=== PATIENT | male | born 1990 | race Caucasian/White ===

== ENCOUNTER 2019-04-08 21:32 | Emergency (ER) | payer SELFPAY ==
--- NOTE | 2019-04-08 21:37 | PDOC ---
Rapid Medical Evaluation Chief Complaint: Back Pain Time Seen by Provider: 04/08/19 21:35 Medical Evaluation: Allergies Allergy/AdvReac Type Severity Reaction Status Date / Time No Known Allergies Allergy Verified 04/08/19 21:35 04/08/19 21:36 I have performed a brief in-person evaluation of this patient. The patient presents with a chief complaint of:Lower back pain s/p heavy lifting today at work Pertinent physical exam findings:christo uncomfortable I have ordered the following:nothing The patient will proceed to the ED for further evaluation. Discharge Disposition - Diagnosis Low back pain Qualifiers: Chronicity: acute Back pain laterality: unspecified Sciatica presence: without sciatica Qualified Code(s): M54.5 - Low back pain - Referrals - Patient Instructions - Post Discharge Activity
[2019-04-08 21:38] VITALS: BP 106/65; PULSE 71; TEMP 98.5; BMI 32.1
[2019-04-08] MEDS ORDERED: KETOROLAC TROMETHAMINE 60 MG/2 ML VIAL IM ONE (21:55)
[2019-04-08] MEDS ORDERED: KETOROLAC TROMETHAMINE 60 MG/2 ML VIAL ONE (22:01)
--- NOTE | 2019-04-08 22:02 | PDOC ---
History of Present Illness - General Chief Complaint: Back Pain Stated Complaint: BACK PAIN Time Seen by Provider: 04/08/19 21:35 - History of Present Illness Initial Comments: 04/08/19 22:02 29-year-old male without comorbidities presents for evaluation of lower back pain with posterior lateral left leg radicular symptoms without loss of bowel or bladder function systemic symptoms times one day. Past History - Past Medical History Allergies/Adverse Reactions: Allergies Allergy/AdvReac Type Severity Reaction Status Date / Time No Known Allergies Allergy Verified 04/08/19 21:35 Home Medications: Ambulatory Orders Cyclobenzaprine HCl [Flexeril 10 mg] 10 mg PO HS PRN #10 tablet 04/08/19 Methylprednisolone [Medrol Dose Booker] 4 mg PO ASDIR #21 tablet 04/08/19 COPD: No - Surgical History Appendectomy: Yes - Suicide/Smoking/Psychosocial Hx Smoking History: Never smoked Review of Systems - Review of Systems Musculoskeletal: Yes: Back Pain *Physical Exam - Vital Signs Last Vital Signs Temp Pulse Resp BP Pulse Ox 98.5 F 71 18 106/65 97 04/08/19 21:36 04/08/19 21:36 04/08/19 21:36 04/08/19 21:36 04/08/19 21:36 - Physical Exam Comments: 04/08/19 22:01 Lumbar spine skin color and temperature are normal. There is decreased range of motion. 5 out of 5 strength in bilateral lower extremities.Straight leg raise test is positive bilaterally. Thighs and calves are soft and nontender. There are no gross sensory motor deficits. Neurovascularly intact. R sided para lumbar musculature spasm and tenderness Medical Decision Making - Medical Decision Making 04/08/19 21:59 lumbar radiculopathy without gross sensorimotor deficits *DC/Admit/Observation/Transfer Diagnosis at time of Disposition: Lumbar radiculopathy Low back pain Qualifiers: Chronicity: acute Back pain laterality: unspecified Sciatica presence: without sciatica Qualified Code(s): M54.5 - Low back pain - Discharge Dispostion Disposition: HOME Condition at time of disposition: Stable Decision to Admit order: No - Prescriptions Prescriptions: Cyclobenzaprine HCl [Flexeril 10 mg] 10 mg PO HS PRN #10 tablet PRN Reason: Muscle Spasms Methylprednisolone [Medrol Dose Booker] 4 mg PO ASDIR #21 tablet - Referrals Referrals: ON STAFF,NOT [Primary Care Provider] - Urbano Cole MD, [facility] [Staff Physician] - - Patient Instructions Printed Discharge Instructions: Lumbar Radiculopathy, DI for Lumbar Radiculopathy Additional Instructions: Please start steroid pack in the morning. Take the medication as directed. The muscle relaxers one tablet before bedtime and will make you sleepy. He may take Tylenol as directed in addition to the steroid pack. Avoid anti-inflammatory such as Advil Motrin Aleve and ibuprofen. You're given an injection of a long- acting anti-inflammatory in the emergency room do not take any anti- inflammatories. Return to the emergency room should symptoms worsen or go unresolved and follow- up with neuro or spine surgery without fail in 1-2 days for further evaluation and treatment options. Follow-up with spine surgery without fail in 1-2 days for further evaluation and treatment options. - Post Discharge Activity
== END 2019-04-08 22:07 | disposition home or self-care (01) ==
LOC: JERFT 21:32
PROC: 3E0233Z Introduction of Anti-inflammatory into Muscle, Percutaneous Approach (ICD-10-PCS; principal; 2019-04-08)
DX: M54.16 Radiculopathy, lumbar region (principal); X50.9XXA Other and unspecified overexertion or strenuous movements or postures, initial encounter; Y93.H3 Activity, building and construction; Y92.69 Other specified industrial and construction area as the place of occurrence of the external cause; Y99.0 Civilian activity done for income or pay
CPT/HCPCS: 99282-25

== ENCOUNTER 2019-04-10 15:02 | Emergency (ER) | payer SELFPAY ==
--- NOTE | 2019-04-10 15:11 | PDOC ---
Rapid Medical Evaluation Chief Complaint: Back Pain Time Seen by Provider: 04/10/19 15:06 Medical Evaluation: Allergies Allergy/AdvReac Type Severity Reaction Status Date / Time No Known Allergies Allergy Verified 04/10/19 15:06 04/10/19 15:09 I have performed a brief in-person evaluation of this patient. The patient presents with a chief complaint of:LBP, on medrol dose pack and flexeril w/ no relief Pertinent physical exam findings:stable I have ordered the following:nothing The patient will proceed to the ED for further evaluation. Discharge Disposition - Diagnosis Low back pain Qualifiers: Chronicity: unspecified Back pain laterality: unspecified Sciatica presence: without sciatica Qualified Code(s): M54.5 - Low back pain - Referrals - Patient Instructions - Post Discharge Activity
[2019-04-10 15:12] VITALS: BP 114/84; PULSE 74; TEMP 98.2; BMI 32.1
--- NOTE | 2019-04-10 15:53 | PDOC ---
History of Present Illness - General Chief Complaint: Back Pain Stated Complaint: BACK PAIN Time Seen by Provider: 04/10/19 15:06 History Source: Patient Exam Limitations: No Limitations - History of Present Illness Initial Comments: 04/10/19 15:48 Second visit for patient with persistent low back pain. Was seen here 2 days ago and given prescription for cyclobenzaprine and NSAIDs with no relief of pain. Patient states has chronic back pain and tension but has progressively worsened this week. States lifted some heavy object at work and suffered an acute onset of worsened pain at waistline. Denies problems with bowels or bladder. Occurred: reports: last week Severity: reports: moderate Pain Location: reports: back Loss of Consciousness: no loss of consciousness Associated Symptoms (Fall): denies symptoms Past History - Travel Traveled outside of the country in the last 30 days: No Close contact w/someone who was outside of country & ill: No - Past Medical History Allergies/Adverse Reactions: Allergies Allergy/AdvReac Type Severity Reaction Status Date / Time No Known Allergies Allergy Verified 04/10/19 15:06 Home Medications: Ambulatory Orders Cyclobenzaprine HCl [Flexeril 10 mg] 10 mg PO HS PRN #10 tablet 04/08/19 Methylprednisolone [Medrol Dose Booker] 4 mg PO ASDIR #21 tablet 04/08/19 Methocarbamol [Robaxin -] 1,500 mg PO Q8H PRN #20 tablet 04/10/19 Naproxen [Naprosyn -] 500 mg PO BID #30 tablet 04/10/19 predniSONE [Deltasone -] 20 mg PO BID #8 tablet 04/10/19 COPD: No - Surgical History Appendectomy: Yes - Immunization History Immunization Up to Date: Yes - Suicide/Smoking/Psychosocial Hx Smoking History: Current every day smoker Information on smoking cessation initiated: No Hx Alcohol Use: No Drug/Substance Use Hx: No Review of Systems - Review of Systems Able to Perform ROS?: Yes Is the patient limited [place]er proficient: Yes Constitutional: Yes: Symptoms Reported, See HPI, Fever, Malaise HEENTM: Yes: See HPI. No: Symptoms Reported Respiratory: Yes: See HPI. No: Symptoms reported Musculoskeletal: Yes: Symptoms Reported, See HPI, Back Pain All Other Systems: Reviewed and Negative *Physical Exam - Vital Signs Last Vital Signs Temp Pulse Resp BP Pulse Ox 98.2 F 74 16 114/84 99 04/10/19 15:06 04/10/19 15:06 04/10/19 15:06 04/10/19 15:06 04/10/19 15:06 - Physical Exam General Appearance: Yes: Appropriately Dressed HEENT: positive: [place], Normal ENT Inspection, TMs Normal, Pharynx Normal Neck: positive: Tender. negative: Supple Respiratory/Chest: positive: Lungs Clear Musculoskeletal: positive: Muscle Spasm. 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 NML intact, Fully Oriented, Alert, Normal Mood/ Affect *DC/Admit/Observation/Transfer Diagnosis at time of Disposition: Lumbar radiculopathy Low back pain Qualifiers: Chronicity: unspecified Back pain laterality: unspecified Sciatica presence: without sciatica Qualified Code(s): M54.5 - Low back pain - Discharge Dispostion Disposition: HOME Condition at time of disposition: Stable Decision to Admit order: No - Prescriptions Prescriptions: Methocarbamol [Robaxin -] 1,500 mg PO Q8H PRN #20 tablet PRN Reason: Muscle Spasms Naproxen [Naprosyn -] 500 mg PO BID #30 tablet predniSONE [Deltasone -] 20 mg PO BID #8 tablet - Referrals - Patient Instructions Printed Discharge Instructions: DI for Low Back Pain Additional Instructions: Rest, no heavy lifting or exercise until pain is resolved Hot soaks to neck and low back as often as possible/hot showers or Jacuzzis No massage or therapy until spasm is gone Continue Naprosyn 500 mg tablet every 12 hours for the next 3 days then as needed for pain and swelling Robaxin 750 mg tablets, 2 tablets today every 8 hours as needed for spasm and then reduced to 1 tablet every 8 hours as needed for spasm these 2+ Prednisone 40 mg daily for the next 4 days If not significant improvement within 24 hours with medication and rest regime, followup with private physician for change in medications and /or therapy. - Post Discharge Activity Forms/Work/School Notes: Back to Work
[2019-04-10] MEDS ORDERED: predniSONE 20 MG TABLET (UD) PO ONE (16:03)
[2019-04-10] MEDS ORDERED: KETOROLAC TROMETHAMINE 60 MG/2 ML VIAL IM ONE (16:03)
[2019-04-10] MEDS ORDERED: KETOROLAC TROMETHAMINE 60 MG/2 ML VIAL ONE (16:05)
[2019-04-10] MEDS ORDERED: predniSONE 20 MG TABLET (UD) ONE (16:05)
== END 2019-04-10 16:32 | disposition home or self-care (01) ==
LOC: JERFT 15:02
PROC: 3E0233Z Introduction of Anti-inflammatory into Muscle, Percutaneous Approach (ICD-10-PCS; principal; 2019-04-10)
DX: M54.5 Low back pain (principal)
CPT/HCPCS: 72100-TC-FY; 99282-25

== ENCOUNTER 2022-08-28 08:09 | Emergency (ER) | payer OTHER ==
[2022-08-28 08:28] VITALS: BP 149/93; PULSE 57; RESP 20; TEMP 98.5; BMI 33.2
[2022-08-28] MEDS ORDERED: LIDOCAINE 5% TOPICAL PATCH TP ONE (09:12)
[2022-08-28] MEDS ORDERED: diazePAM 5 MG TABLET PO ONE (09:20)
[2022-08-28] MEDS ORDERED: LIDOCAINE 5% TOPICAL PATCH ONE (09:39)
[2022-08-28] MEDS ORDERED: diazePAM 5 MG TABLET ONE (09:40)
[2022-08-28] MEDS ORDERED: KETOROLAC TROMETHAMINE 30 MG/1 ML VIAL IM ONE (09:50)
[2022-08-28] MEDS ORDERED: KETOROLAC TROMETHAMINE 30 MG/1 ML VIAL ONE (09:58)
[2022-08-28] MEDS ORDERED: LIDOCAINE PATCH REMOVAL MC SCH (22:00)
== END 2022-08-28 12:30 | disposition home or self-care (01) ==
LOC: JERFT 08:09 → JER 08:09 → JERFT 12:30
PROC: 3E023GC Introduction of Other Therapeutic Substance into Muscle, Percutaneous Approach (ICD-10-PCS; principal; 2022-08-28)
DX: M54.42 Lumbago with sciatica, left side (principal)
CPT/HCPCS: 72100-TC-FY; 99284-25

== ENCOUNTER 2023-07-27 11:38 | Emergency (ER) | payer OTHER ==
[2023-07-27 12:21] VITALS: BP 141/74; PULSE 81; RESP 18; TEMP 98.2; BMI 33.5
[2023-07-27] MEDS ORDERED: KETOROLAC TROMETHAMINE 30 MG/1 ML VIAL IM ONE (14:30)
[2023-07-27] MEDS ORDERED: KETOROLAC TROMETHAMINE 30 MG/1 ML VIAL ONE (15:08)
== END 2023-07-27 15:19 | disposition home or self-care (01) ==
LOC: JERFT 11:38
PROC: 3E0233Z Introduction of Anti-inflammatory into Muscle, Percutaneous Approach (ICD-10-PCS; principal; 2023-07-27)
DX: S62.522A Displaced fracture of distal phalanx of left thumb, initial encounter for closed fracture (principal); R20.0 Anesthesia of skin; W22.8XXA Striking against or struck by other objects, initial encounter
CPT/HCPCS: 73130-TC-LT-FY; 99284-25